=== PATIENT | female | born 1970 | race Hispanic/Latino ===

== ENCOUNTER 2021-02-15 00:17 | Emergency (ER) | payer BC ==
[2021-02-15] MEDS ORDERED: ASPIRIN 325 MG TAB PO ONE (01:18)
--- NOTE | 2021-02-15 01:50 | Emergency Department Report ---
ED Chest Pain HPI - General Chief Complaint: Chest Pain Stated Complaint: CHEST PAIN Time Seen by Provider: 02/15/21 01:46 Source: patient, EMS Mode of arrival: Ambulatory Limitations: No Limitations - History of Present Illness MD Complaint: chest pain -: Sudden (was standing at the computer when the pain started to mid chest. ) Pain Location: substernal Pain Radiation: none Severity: mild, moderate Quality: tightness, aching Consistency: constant Improves With: nothing Worsens With: nothing re: nausea Other Symptoms: cough Treatments Prior to Arrival: aspirin - Related Data Previous Rx's Medication Instructions Recorded Last Taken Type Albuterol Mdi (or & Nicu Only) 2 puff IH QID PRN #1 inhalation 05/06/13 Unknown Rx [ProAir HFA Inhaler] Ibuprofen [Motrin] 800 mg PO TID PRN #25 tablet 05/06/13 Unknown Rx guaiFENesin/CODEINE [Robitussin AC] 5 - 10 ml PO Q6H PRN #100 ml 05/06/13 Unknown Rx Allergies Allergy/AdvReac Type Severity Reaction Status Date / Time No Known Allergies Allergy Verified 05/06/13 02:04 Heart Score - HEART Score History: Slightly suspicious EKG: Normal Age: 45-65 Risk factors: 1-2 risk factors Troponin: < normal limit HEART Score: 2 - EKG Read Time Time EKG Completed: 01:51 EKG Read Time: 01:59 ED Review of Systems ROS: Stated complaint: CHEST PAIN Other details as noted in HPI Comment: All other systems reviewed and negative ED Past Medical Hx - Past Medical History Previous Medical History?: No - Surgical History Additional Surgical History: tonsilectomy, adenoidectomy - Social History Smoking Status: Never Smoker Substance Use Type: None - Medications Home Medications: Home Medications Medication Instructions Recorded Confirmed Last Taken Type Albuterol Mdi (or & Nicu Only) 2 puff IH QID PRN #1 inhalation 05/06/13 Unknown Rx [ProAir HFA Inhaler] Ibuprofen [Motrin] 800 mg PO TID PRN #25 tablet 05/06/13 Unknown Rx guaiFENesin/CODEINE [Robitussin AC] 5 - 10 ml PO Q6H PRN #100 ml 05/06/13 Unknown Rx ED Physical Exam - General Limitations: No Limitations General appearance: alert, in no apparent distress - Head Head exam: Present: atraumatic, normocephalic - Eye Eye exam: Present: normal appearance, PERRL, EOMI Pupils: Present: normal accommodation - ENT ENT exam: Present: normal exam, normal orophraynx, mucous membranes moist, TM's normal bilaterally - Neck Neck exam: Present: normal inspection, full ROM - Respiratory Respiratory exam: Present: normal lung sounds bilaterally. Absent: respiratory distress, wheezes, rales, rhonchi, chest wall tenderness, accessory muscle use - Cardiovascular Cardiovascular Exam: Present: regular rate, normal rhythm. Absent: systolic murmur, diastolic murmur, rubs, gallop - GI/Abdominal GI/Abdominal exam: Present: soft, normal bowel sounds - Extremities Exam Extremities exam: Present: normal inspection - Back Exam Back exam: Present: normal inspection. Absent: CVA tenderness (R), CVA tenderness (L) - Neurological Exam Neurological exam: Present: alert, oriented X3, CN II-XII intact, normal gait - Psychiatric Psychiatric exam: Present: normal affect, normal mood - Skin Skin exam: Present: warm, dry, intact, normal color. Absent: rash ED Course Vital Signs 02/15/21 00:26 Temperature 98 F Pulse Rate 85 Respiratory 18 Rate Blood Pressure 169/98 [Left] O2 Sat by Pulse 98 Oximetry CHIRAG score - Chirag Score Age > 65: (0) No Aspirin use within the Past 7 Days: (0) No 3 or more CAD Risk Factors: (0) No 2 or more Angina events in past 24 hrs: (0) No Known CAD with more than 50% Stenosis: (0) No Elevated Cardiac Markers: (0) No ST Deviation Greater than 0.5mm: (0) No CHIRAG Score: 0 ED Medical Decision Making - Lab Data Result diagrams: 02/15/21 01:31 02/15/21 01:31 - Radiology Data Radiology results: report reviewed [facility] [address] [place] [address] XRay Report Signed Patient: GAURI LEE MR#: [id number] : 1970 Acct:[id number] Age/Sex: 51 / F ADM Date: 02/15/21 Loc: ED Attending Dr: Ordering Physician: ED MD MARINA Date of Service: 02/15/21 Procedure(s): XR chest routine 2V Accession Number(s): [id number] cc: ED DOC, Fluoro Time In Minutes: CHEST 2 VIEWS INDICATION / CLINICAL INFORMATION: Chest Pain. COMPARISON: None available. FINDINGS: SUPPORT DEVICES: None. HEART / MEDIASTINUM: No significant abnormality. LUNGS / PLEURA: No significant pulmonary or pleural abnormality. No pneumotho rax. ADDITIONAL FINDINGS: No significant additional findings. IMPRESSION: 1. No acute findings. Signer Name: Kasi Hopson MD Signed: 02/15/2021 2:16 AM Workstation Name: [id number] Transcribed By: KERON Dictated By: GAIL HOPSON MD Electronically Authenticated By: GAIL HOPSON MD Signed Date/Time: 02/15/21215 DD/ 5 TD/TT: - Medical Decision Making This patient presents with chest pain that is very unlikely angina or acute coronary syndrome. The emergency department evaluation has not identified any cause for suspicion that this chest pain has a cardiac etiology. Based on their history, EKG (which showed no evidence of ischemia or infarction) and imaging, in addition to the patient's physical exam, I see no evidence at this time for a malignant etiology for the patient's chest pain. There is no acute evidence for pulmonary embolus, acute myocardial infarction, pneumothorax, Boerhaeve syndrome, cardiac tamponade, thoracic artery dissection, or any other emergent cardiac, pulmonary or aortic pathology. Given the low pre-test probability for cardiac etiology of chest pain and the absence of any sign of ischemia or infarction, discharge for outpatient follow-up and further evaluation is reasonable. I have explained to the patient that even though a cardiac problem is very unlikely, follow-up and further testing is required to reduce further the already small uncertainty that exists. Other life-threatening diagnoses have been considered. The patient understands the need to return immediately if their symptoms worsen or they develop any new symptoms, and not to engage in any significant exertional activity until follow-up is obtained. Critical care attestation.: If time is entered above; I have spent that time in minutes in the direct care of this critically ill patient, excluding procedure time. ED Disposition Clinical Impression: Chest pain Disposition: HOME / SELF CARE / HOMELESS Is pt being admited?: No Does the pt Need Aspirin: No Condition: Stable Instructions: Nonspecific Chest Pain, Adult, Chest Wall Pain, [id number]
[2021-02-15 02:05] LABS: Basophils % (Auto) 0.4 % (0.0-1.8); Eosinophils # (Auto) 0.3 K/mm3 (0.0-0.4); Eosinophils % (Auto) 5.1 % (0.0-4.3); Hematocrit 42.6 % (30.3-42.9); Hemoglobin 13.9 gm/dl (10.1-14.3); Lymphocytes # (Auto) 1.7 K/mm3 (1.2-5.4); Lymphocytes % (Auto) 25.6 % (13.4-35.0); Mean Corpuscular HGB Conc 33 % (30-34); Mean Corpuscular Volume 90 fl (79-97); Monocytes # (Auto) 0.6 K/mm3 (0.0-0.8); Monocytes % (Auto) 8.6 % (0.0-7.3); Platelet Count 393 K/mm3 (140-440); Red Blood Count 4.75 M/mm3 (3.65-5.03); Red Cell Distribution Width 12.7 % (13.2-15.2)
--- NOTE | 2021-02-15 02:20 | XRay Report ---
CHEST 2 VIEWS INDICATION / CLINICAL INFORMATION: Chest Pain. COMPARISON: None available. FINDINGS: SUPPORT DEVICES: None. HEART / MEDIASTINUM: No significant abnormality. LUNGS / PLEURA: No significant pulmonary or pleural abnormality. No pneumothorax. ADDITIONAL FINDINGS: No significant additional findings. IMPRESSION: 1. No acute findings. Signer Name: Kasi Chin MD Signed: 02/15/2021 2:16 AM Workstation Name: [id number]
[2021-02-15 02:27] LABS: Alanine Aminotransferase 16 units/L (7-56); Albumin 4.5 g/dL (3.9-5); BUN/Creatinine Ratio 18; Blood Urea Nitrogen 14 mg/dL (7-17); Calcium 9.1 mg/dL (8.4-10.2); Hemolysis Index 11
[2021-02-15 07:47] VITALS: BP 160/95
--- NOTE | 2021-02-15 12:23 | Electrocardiograph Report ---
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
== END 2021-02-15 07:53 | disposition home or self-care (01) ==
LOC: ED 00:17
DX: R07.9 Chest pain, unspecified (principal)
CPT/HCPCS: 36415; 71046; 80053; 84484; 85025; 93005; 99284

== ENCOUNTER 2021-02-21 11:09 | Emergency (ER) | payer BC ==
[2021-02-21] MEDS ORDERED: ONDANSETRON 4 MG/2 ML INJ IV ONE ×2 (11:17→16:00)
[2021-02-21] MEDS ORDERED: SODIUM CHLORIDE 0.9% 1000 ML 1,000 ML IV ONE ×2 (11:17→15:15)
[2021-02-21] MEDS ORDERED: MORPHINE 4 MG/1 ML INJ IV ONE (11:17)
--- NOTE | 2021-02-21 11:17 | Emergency Department Report ---
ED Abdominal Pain HPI - General Stated Complaint: ABD PAIN Time Seen by Provider: 02/21/21 11:13 Source: patient Mode of arrival: Ambulatory Limitations: No Limitations - History of Present Illness Initial Comments: Patient is a 51-year-old female presents emergency room complaints of sudden onset of epigastric abdominal pain that began just prior to arrival. She denies ever having this pain in the past. She states that she was able to have a normal bowel movement this morning. She denies any past abdominal surgical history. She denies any fever, vomiting, diarrhea, chest pain, shortness of breath, hematochezia, melena, hematemesis. No past medical history. No aller gies to medications. - Related Data Previous Rx's Medication Instructions Recorded Last Taken Type Albuterol Mdi (or & Nicu Only) 2 puff IH QID PRN #1 inhalation 05/06/13 Unknown Rx [ProAir HFA Inhaler] Ibuprofen [Motrin] 800 mg PO TID PRN #25 tablet 05/06/13 Unknown Rx guaiFENesin/CODEINE [Robitussin AC] 5 - 10 ml PO Q6H PRN #100 ml 05/06/13 Unknown Rx Acetaminophen [Tylenol] 650 mg PO Q8HR PRN #20 capsule 02/21/21 Unknown Rx Ondansetron [Zofran Odt] 4 mg PO Q8HR PRN #8 tab.rapdis 02/21/21 Unknown Rx Allergies Allergy/AdvReac Type Severity Reaction Status Date / Time No Known Allergies Allergy Verified 05/06/13 02:04 ED Review of Systems ROS: Stated complaint: ABD PAIN Other details as noted in HPI Comment: All other systems reviewed and negative ED Past Medical Hx - Surgical History Additional Surgical History: tonsilectomy, adenoidectomy - Social History Smoking Status: Never Smoker Substance Use Type: None - Medications Home Medications: Home Medications Medication Instructions Recorded Confirmed Last Taken Type Albuterol Mdi (or & Nicu Only) 2 puff IH QID PRN #1 inhalation 05/06/13 Unknown Rx [ProAir HFA Inhaler] Ibuprofen [Motrin] 800 mg PO TID PRN #25 tablet 05/06/13 Unknown Rx guaiFENesin/CODEINE [Robitussin AC] 5 - 10 ml PO Q6H PRN #100 ml 05/06/13 Unknown Rx Acetaminophen [Tylenol] 650 mg PO Q8HR PRN #20 capsule 02/21/21 Unknown Rx Ondansetron [Zofran Odt] 4 mg PO Q8HR PRN #8 tab.rapdis 02/21/21 Unknown Rx ED Physical Exam - General Limitations: No Limitations General appearance: alert, other (appears to be in pain ) - Head Head exam: Present: atraumatic, normocephalic - Eye Eye exam: Present: normal appearance - ENT ENT exam: Present: mucous membranes moist - Respiratory Respiratory exam: Present: normal lung sounds bilaterally. Absent: respiratory distress, wheezes, rales, rhonchi, stridor, chest wall tenderness, accessory muscle use, decreased breath sounds, prolonged expiratory - Cardiovascular Cardiovascular Exam: Present: regular rate, normal rhythm, normal heart sounds. Absent: systolic murmur, diastolic murmur, rubs, gallop - GI/Abdominal GI/Abdominal exam: Present: soft, tenderness (epigastric), normal bowel sounds, hernia (ventral just superior to the umbilicus ). Absent: distended, guarding, rebound, rigid - Neurological Exam Neurological exam: Present: alert, oriented X3 - Psychiatric Psychiatric exam: Present: normal affect, normal mood - Skin Skin exam: Present: warm, dry, intact ED Course Vital Signs 02/21/21 02/21/21 15:27 15:45 Temperature 97.8 F Pulse Rate 72 78 Respiratory 18 18 Rate Blood Pressure 164/94 132/81 [Left] O2 Sat by Pulse 96 96 Oximetry ED Medical Decision Making - Lab Data Result diagrams: 02/21/21 11:26 02/21/21 11:26 Lab Results 02/21/21 02/21/21 02/21/21 Range/Units 11:26 11:26 11:26 WBC 9.8 (4.5-11.0) K/mm3 RBC 4.66 (3.65-5.03) M/mm3 Hgb 13.3 (10.1-14.3) gm/dl Hct 40.8 (30.3-42.9) % MCV 88 (79-97) fl MCH 29 (28-32) pg MCHC 33 (30-34) % RDW 12.9 L (13.2-15.2) % Plt Count 354 (140-440) K/mm3 Lymph % (Auto) 18.0 (13.4-35.0) % [place] % (Auto) 7.5 H (0.0-7.3) % Eos % (Auto) 2.0 (0.0-4.3) % Baso % (Auto) 0.4 (0.0-1.8) % Lymph # (Auto) 1.8 (1.2-5.4) K/mm3 [place] # (Auto) 0.7 (0.0-0.8) K/mm3 Eos # (Auto) 0.2 (0.0-0.4) K/mm3 Baso # (Auto) 0.0 (0.0-0.1) K/mm3 Seg Neutrophils % 72.1 H (40.0-70.0) % Seg Neutrophils # 7.1 (1.8-7.7) K/mm3 Sodium 141 (137-145) mmol/L Potassium 3.9 (3.6-5.0) mmol/L Chloride 105.1 (98-107) mmol/L Carbon Dioxide 23 (22-30) mmol/L Anion Gap 17 mmol/L BUN 12 (7-17) mg/dL Creatinine 0.7 (0.6-1.2) mg/dL Estimated GFR > 60 ml/min BUN/Creatinine Ratio 17 % Glucose 122 H (65-100) mg/dL Calcium 8.7 (8.4-10.2) mg/dL Total Bilirubin 0.20 (0.1-1.2) mg/dL AST 15 (5-40) units/L ALT 14 (7-56) units/L Alkaline Phosphatase 90 (35-129) units/L Troponin T < 0.010 (0.00-0.029) ng/mL Total Protein 7.2 (6.3-8.2) g/dL Albumin 4.3 (3.9-5) g/dL Albumin/Globulin Ratio 1.5 % Lipase 32 (13-60) units/L HCG, Qual Negative (Negative) Urine Color (Yellow) Urine Turbidity (Clear) Urine pH (5.0-7.0) Ur Specific [place] (1.003-1.030) Urine Protein (Negative) mg/dL Urine Glucose (UA) (Negative) mg/dL Urine Ketones (Negative) mg/dL Urine Blood (Negative) Urine Nitrite (Negative) Urine Bilirubin (Negative) Urine Urobilinogen (<2.0) mg/dL Ur Leukocyte Esterase (Negative) Urine WBC (Auto) (0.0-6.0) /HPF Urine RBC (Auto) (0.0-6.0) /HPF U Epithel Cells (Auto) (0-13.0) /HPF 02/21/21 Range/Units Unknown WBC (4.5-11.0) K/mm3 RBC (3.65-5.03) M/mm3 Hgb (10.1-14.3) gm/dl Hct (30.3-42.9) % MCV (79-97) fl MCH (28-32) pg MCHC (30-34) % RDW (13.2-15.2) % Plt Count (140-440) K/mm3 Lymph % (Auto) (13.4-35.0) % [place] % (Auto) (0.0-7.3) % Eos % (Auto) (0.0-4.3) % Baso % (Auto) (0.0-1.8) % Lymph # (Auto) (1.2-5.4) K/mm3 [place] # (Auto) (0.0-0.8) K/mm3 Eos # (Auto) (0.0-0.4) K/mm3 Baso # (Auto) (0.0-0.1) K/mm3 Seg Neutrophils % (40.0-70.0) % Seg Neutrophils # (1.8-7.7) K/mm3 Sodium (137-145) mmol/L Potassium (3.6-5.0) mmol/L Chloride (98-107) mmol/L Carbon Dioxide (22-30) mmol/L Anion Gap mmol/L BUN (7-17) mg/dL Creatinine (0.6-1.2) mg/dL Estimated GFR ml/min BUN/Creatinine Ratio % Glucose (65-100) mg/dL Calcium (8.4-10.2) mg/dL Total Bilirubin (0.1-1.2) mg/dL AST (5-40) units/L ALT (7-56) units/L Alkaline Phosphatase (35-129) units/L Troponin T (0.00-0.029) ng/mL Total Protein (6.3-8.2) g/dL Albumin (3.9-5) g/dL Albumin/Globulin Ratio % Lipase (13-60) units/L HCG, Qual (Negative) Urine Color Yellow (Yellow) Urine Turbidity Slightly-cloudy (Clear) Urine pH 7.0 (5.0-7.0) Ur Specific [place] 1.008 (1.003-1.030) Urine Protein <15 mg/dl (Negative) mg/dL Urine Glucose (UA) Neg (Negative) mg/dL Urine Ketones Neg (Negative) mg/dL Urine Blood Mod (Negative) Urine Nitrite Neg (Negative) Urine Bilirubin Neg (Negative) Urine Urobilinogen < 2.0 (<2.0) mg/dL Ur Leukocyte Esterase Neg (Negative) Urine WBC (Auto) < 1.0 (0.0-6.0) /HPF Urine RBC (Auto) 1.0 (0.0-6.0) /HPF U Epithel Cells (Auto) 12.0 (0-13.0) /HPF Vital Signs 02/21/21 02/21/21 15:27 15:45 Temperature 97.8 F Pulse Rate 72 78 Respiratory 18 18 Rate Blood Pressure 164/94 132/81 [Left] O2 Sat by Pulse 96 96 Oximetry - Radiology Data Radiology results: report reviewed Ordering Physician: CITLALY FARRIS Date of Service: 02/21/21 Procedure(s): CT abdomen pelvis w con Accession Number(s): [id number] cc: CITLALY FARRIS CT OF THE ABDOMEN AND PELVIS WITH INTRAVENOUS CONTRAST INDICATION / CLINICAL INFORMATION: Epigastric abdominal pain. TECHNIQUE: The patient received 100 cc Omnipaque [address] scans at this location are performed using CT dose reduction for ALARA by means of automated exposure control. COMPARISON: None available. FINDINGS: ABDOMEN: The liver, spleen, gallbladder, bile ducts, pancreas, adrenal glands and kidneys demonstrate no significant abnormality. No adenopathy is seen. The lung bases are clear. There is a small fat-containing midline epigastric ventral hernia with mild increased density in the hernia sac fat. There is also mild patchy increased density in the omenta l/peritoneal fat along the inferior margin of the mid transverse colon slightly to the left of midline. This does not appear to be related to the hernia, although the hernia is nearby. There is no e vidence of bowel obstruction, wall thickening or free air. PELVIS: The distal ureters and urinary bladder are normal. A 2 cm left ovarian cyst is probably physiologic. No free fluid is seen. A normal appendix is present. There are scattered left colonic diverticula without acute inflammation. I do not identify a hernia. There is advanced degenerative disc disease at L4-5. No acute osseous abnormality is seen. IMPRESSION: 1. Small fat-containing midline epigastric ventral hernia. Mild increased density in the hernia sac fat may be related to acute or chronic inflammation. 2. Mild patchy increased density in the omental/peritoneal fat along the inferior margin of the transverse colon. A small omental infarction should be considered. Signer Name: Ad Corley MD Signed: 02/21/2021 2:20 PM Workstation Name: [id number] Transcribed By: RT Dictated By: Ad Corley MD Electronically Authenticated By: Ad Corley MD Signed Date/Time: 02/21/211419 DD/ 12 TD/TT: - Medical Decision Making Patient is a 51-year-old female presents emergency room complaints of sudden onset of epigastric abdominal pain that began just prior to arrival. She denies ever having this pain in the past. She states that she was able to have a normal bowel movement this morning. She denies any past abdominal surgical history. She denies any fever, vomiting, diarrhea, chest pain, shortness of breath, hematochezia, melena, hematemesis. No past medical history. No allergies to medications. Vitals are stable. On exam: Epigastric tenderness outpatient, there is a palpable ventral hernia just superior to the umbilicus, normal bowel sounds, no peritoneal signs. Able to manually reduce patient's hernia with improvement of her pain and she states now she is pain-free. Labs are stable. UA is within normal limits. CT abdomen pelvis 1. Small fat- containing midline epigastric ventral hernia. Mild increased density in the hernia sac fat may be related to acute or chronic inflammation. 2. Mild patchy increased density in the omental/peritoneal fat along the inferior margin of the transverse colon. A small omental infarction should be considered. Discussed all results with patient and answer questions. Patient will be referred to outpatient general surgery. Discussed return precautions with patient. Dr. Coley, ER attending evaluated patient at bedside and is agreeable with plan. advised pt Please take medication as prescribed as needed. Increase your fluid intake. Follow-up with a general surgeon. Return to emergency room immediately for any new or worsening symptoms including but not limited to if the hernia bulges and is unable to be placed back, vomiting, unable to have a bowel movement or pass gas, etc. Critical care attestation.: If time is entered above; I have spent that time in minutes in the direct care of this critically ill patient, excluding procedure time. ED Disposition Clinical Impression: Abdominal pain Qualifiers: Abdominal location: epigastric Qualified Code(s): R10.13 - Epigastric pain Ventral hernia Qualifiers: Obstruction and gangrene presence: without obstruction or gangrene Qualified Code(s): K43.9 - Ventral hernia without obstruction or gangrene Disposition: 01 HOME / SELF CARE / HOMELESS Is pt being admited?: No Does the pt Need Aspirin: No Condition: Stable Instructions: Hernia, Adult, [id number] Additional Instructions: Please take medication as prescribed as needed. Increase your fluid intake. Follow-up with a general surgeon. Return to emergency room immediately for any new or worsening symptoms including but not limited to if the hernia bulges and is unable to be placed back, vomiting, unable to have a bowel movement or pass gas, etc. Prescriptions: Acetaminophen [Tylenol] 650 mg PO Q8HR PRN #20 capsule PRN Reason: pain Ondansetron [Zofran Odt] 4 mg PO Q8HR PRN #8 tab.rapdis PRN Reason: nausea/vomiting Referrals: ALIX LOPEZ MD [Staff Physician] - 3-5 Days LAWRENCE ROPER DO [Staff Physician] - 3-5 Days Forms: Work/School Release Form(ED) Time of Disposition: 15:19 Print Language: ESTONIAN
[2021-02-21 12:07] LABS: Alanine Aminotransferase 14 units/L (7-56); Albumin 4.3 g/dL (3.9-5); Blood Urea Nitrogen 12 mg/dL (7-17); Calcium 8.7 mg/dL (8.4-10.2); Hemolysis Index 11
[2021-02-21 12:28] LABS: BUN/Creatinine Ratio 17
[2021-02-21 12:32] LABS: Basophils % (Auto) 0.4 % (0.0-1.8); Eosinophils # (Auto) 0.2 K/mm3 (0.0-0.4); Hematocrit 40.8 % (30.3-42.9); Hemoglobin 13.3 gm/dl (10.1-14.3); Lymphocytes # (Auto) 1.8 K/mm3 (1.2-5.4); Mean Corpuscular HGB Conc 33 % (30-34); Mean Corpuscular Volume 88 fl (79-97); Monocytes # (Auto) 0.7 K/mm3 (0.0-0.8); Monocytes % (Auto) 7.5 % (0.0-7.3); Platelet Count 354 K/mm3 (140-440); Red Blood Count 4.66 M/mm3 (3.65-5.03); Red Cell Distribution Width 12.9 % (13.2-15.2)
[2021-02-21 12:36] LABS: Bilirubin,Urine NEG (Negative); Blood,Urine MOD (Negative); Color,Urine Yellow (Yellow); Protein,Urine <15 mg/dL mg/dL (Negative); Urobilinogen,Urine < 2.0 mg/dL (<2.0); WBC,Urine < 1.0 /HPF (0.0-6.0)
--- NOTE | 2021-02-21 14:24 | Cat Scan Report ---
CT OF THE ABDOMEN AND PELVIS WITH INTRAVENOUS CONTRAST INDICATION / CLINICAL INFORMATION: Epigastric abdominal pain. TECHNIQUE: The patient received 100 cc Omnipaque [address] scans at this location are performed using CT dose reduction for ALARA by means of automated exposure control. COMPARISON: None available. FINDINGS: ABDOMEN: The liver, spleen, gallbladder, bile ducts, pancreas, adrenal glands and kidneys demonstrate no significant abnormality. No adenopathy is seen. The lung bases are clear. There is a small fat-containing midline epigastric ventral hernia with mild increased density in the hernia sac fat. There is also mild patchy increased density in the omental/peritoneal fat along the i nferior margin of the mid transverse colon slightly to the left of midline. This does not appear to b e related to the hernia, although the hernia is nearby. There is no evidence of bowel obstruction, wa ll thickening or free air. PELVIS: The distal ureters and urinary bladder are normal. A 2 cm left ovarian cyst is probably physi ologic. No free fluid is seen. A normal appendix is present. There are scattered left colonic diverti cula without acute inflammation. I do not identify a hernia. There is advanced degenerative disc dise ase at L4-5. No acute osseous abnormality is seen. IMPRESSION: 1. Small fat-containing midline epigastric ventral hernia. Mild increased density in the hernia sac f at may be related to acute or chronic inflammation. 2. Mild patchy increased density in the omental/peritoneal fat along the inferior margin of the trans verse colon. A small omental infarction should be considered. Signer Name: Ad Corley MD Signed: 02/21/2021 2:20 PM Workstation Name: [id number]
[2021-02-21] MEDS ORDERED: KETOROLAC 30 MG/1 ML INJ IV ONE (14:59)
--- NOTE | 2021-02-21 14:59 | Event Note ---
Date: 02/21/21 Wbuq-th-[id number] evaluation performed. 51-year-old female presenting with epigastric abdominal pain, and reducible supraumbilical hernia. On my exam ination, she has reassuring vital signs, and no abdominal tenderness, rebound, guarding or peritoneal signs. The physician logistics assistant has graciously been able to reduce the patient's umbilical hernia. The patient does not want narcotic prescriptions. Patient may follow-up with an outpatient general surgeon for elective repair, we also discussed supportive undergarments. Return precautions are reviewed. Patient articulated understanding. Prior to discharge, will vital signs, and EKG, as initial EKG was markedly limited by motion artifact. Discussed with physician logistics assistant. All questions answered. Patient has endorsed understanding. Discharge diagnosis: Ventral hernia, reducible. Do not suspect gut at this time. Lab Results 02/21/21 02/21/21 02/21/21 Range/Units 11:26 11:26 11:26 WBC 9.8 (4.5-11.0) K/mm3 RBC 4.66 (3.65-5.03) M/mm3 Hgb 13.3 (10.1-14.3) gm/dl Hct 40.8 (30.3-42.9) % MCV 88 (79-97) fl MCH 29 (28-32) pg MCHC 33 (30-34) % RDW 12.9 L (13.2-15.2) % Plt Count 354 (140-440) K/mm3 Lymph % (Auto) 18.0 (13.4-35.0) % [place] % (Auto) 7.5 H (0.0-7.3) % Eos % (Auto) 2.0 (0.0-4.3) % Baso % (Auto) 0.4 (0.0-1.8) % Lymph # (Auto) 1.8 (1.2-5.4) K/mm3 [place] # (Auto) 0.7 (0.0-0.8) K/mm3 Eos # (Auto) 0.2 (0.0-0.4) K/mm3 Baso # (Auto) 0.0 (0.0-0.1) K/mm3 Seg Neutrophils % 72.1 H (40.0-70.0) % Seg Neutrophils # 7.1 (1.8-7.7) K/mm3 Sodium 141 (137-145) mmol/L Potassium 3.9 (3.6-5.0) mmol/L Chloride 105.1 (98-107) mmol/L Carbon Dioxide 23 (22-30) mmol/L Anion Gap 17 mmol/L BUN 12 (7-17) mg/dL Creatinine 0.7 (0.6-1.2) mg/dL Estimated GFR > 60 ml/min BUN/Creatinine Ratio 17 % Glucose 122 H (65-100) mg/dL Calcium 8.7 (8.4-10.2) mg/dL Total Bilirubin 0.20 (0.1-1.2) mg/dL AST 15 (5-40) units/L ALT 14 (7-56) units/L Alkaline Phosphatase 90 (35-129) units/L Troponin T < 0.010 (0.00-0.029) ng/mL Total Protein 7.2 (6.3-8.2) g/dL Albumin 4.3 (3.9-5) g/dL Albumin/Globulin Ratio 1.5 % Lipase 32 (13-60) units/L HCG, Qual Negative (Negative) Urine Color (Yellow) Urine Turbidity (Clear) Urine pH (5.0-7.0) Ur Specific [place] (1.003-1.030) Urine Protein (Negative) mg/dL Urine Glucose (UA) (Negative) mg/dL Urine Ketones (Negative) mg/dL Urine Blood (Negative) Urine Nitrite (Negative) Urine Bilirubin (Negative) Urine Urobilinogen (<2.0) mg/dL Ur Leukocyte Esterase (Negative) Urine WBC (Auto) (0.0-6.0) /HPF Urine RBC (Auto) (0.0-6.0) /HPF U Epithel Cells (Auto) (0-13.0) /HPF 02/21/21 Range/Units Unknown WBC (4.5-11.0) K/mm3 RBC (3.65-5.03) M/mm3 Hgb (10.1-14.3) gm/dl Hct (30.3-42.9) % MCV (79-97) fl MCH (28-32) pg MCHC (30-34) % RDW (13.2-15.2) % Plt Count (140-440) K/mm3 Lymph % (Auto) (13.4-35.0) % [place] % (Auto) (0.0-7.3) % Eos % (Auto) (0.0-4.3) % Baso % (Auto) (0.0-1.8) % Lymph # (Auto) (1.2-5.4) K/mm3 [place] # (Auto) (0.0-0.8) K/mm3 Eos # (Auto) (0.0-0.4) K/mm3 Baso # (Auto) (0.0-0.1) K/mm3 Seg Neutrophils % (40.0-70.0) % Seg Neutrophils # (1.8-7.7) K/mm3 Sodium (137-145) mmol/L Potassium (3.6-5.0) mmol/L Chloride (98-107) mmol/L Carbon Dioxide (22-30) mmol/L Anion Gap mmol/L BUN (7-17) mg/dL Creatinine (0.6-1.2) mg/dL Estimated GFR ml/min BUN/Creatinine Ratio % Glucose (65-100) mg/dL Calcium (8.4-10.2) mg/dL Total Bilirubin (0.1-1.2) mg/dL AST (5-40) units/L ALT (7-56) units/L Alkaline Phosphatase (35-129) units/L Troponin T (0.00-0.029) ng/mL Total Protein (6.3-8.2) g/dL Albumin (3.9-5) g/dL Albumin/Globulin Ratio % Lipase (13-60) units/L HCG, Qual (Negative) Urine Color Yellow (Yellow) Urine Turbidity Slightly-cloudy (Clear) Urine pH 7.0 (5.0-7.0) Ur Specific [place] 1.008 (1.003-1.030) Urine Protein <15 mg/dl (Negative) mg/dL Urine Glucose (UA) Neg (Negative) mg/dL Urine Ketones Neg (Negative) mg/dL Urine Blood Mod (Negative) Urine Nitrite Neg (Negative) Urine Bilirubin Neg (Negative) Urine Urobilinogen < 2.0 (<2.0) mg/dL Ur Leukocyte Esterase Neg (Negative) Urine WBC (Auto) < 1.0 (0.0-6.0) /HPF Urine RBC (Auto) 1.0 (0.0-6.0) /HPF U Epithel Cells (Auto) 12.0 (0-13.0) /HPF CT OF THE ABDOMEN AND PELVIS WITH INTRAVENOUS CONTRAST INDICATION / CLINICAL INFORMATION: Epigastric abdominal pain. TECHNIQUE: The patient received 100 cc Omnipaque [address] scans at this location are performed using CT dose reduction for ALARA by means of automated exposure control. COMPARISON: None available. FINDINGS: ABDOMEN: The liver, spleen, gallbladder, bile ducts, pancreas, adrenal glands and kidneys demonstrate no significant abnormality. No adenopathy is seen. The lung bases are clear. There is a small fat-containing midline epigastric ventral hernia with mild increased density in the hernia sac fat. There is also mild patchy increased density in the omental/peritoneal fat along the inferior margin of the mid transverse colon slightly to the left of midline. This does not appear to be related to the hernia, although the hernia is nearby. There is no evidence of bowel obstruction, wall thickening or free air. PELVIS: The distal ureters and urinary bladder are normal. A 2 cm left ovarian cyst is probably physiologic. No free fluid is seen. A normal appendix is present. There are scattered left colonic diverticula without acute inflammation. I do not identify a hernia. There is advanced degenerative disc disease at L4-5. No acute osseous abnormality is seen. IMPRESSION: 1. Small fat-containing midline epigastric ventral hernia. Mild increased density in the hernia sac fat may be related to acute or chronic inflammation. 2. Mild patchy increased density in the omental/peritoneal fat along the inferior margin of the transverse colon. A small omental infarction should be considered. Signer Name: Ad Corley MD Signed: 02/21/2021 1:20 PM Workstation Name: [id number]
[2021-02-21 16:10] VITALS: BP 132/81
--- NOTE | 2021-02-25 18:37 | Electrocardiograph Report ---
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
--- NOTE | 2021-02-25 18:39 | Electrocardiograph Report ---
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
== END 2021-02-21 16:12 | disposition home or self-care (01) ==
LOC: ED 11:09
DX: R10.13 Epigastric pain (principal); K43.9 Ventral hernia without obstruction or gangrene
CPT/HCPCS: 36415; 74177; 80053; 81001; 83690; 84484; 84703; 85025; 93005; 96374; 96375; 99284; J1885; J2405; Q9967

== ENCOUNTER 2021-04-07 10:56 | Day surgery (SDC) | payer BC ==
[2021-04-07] MEDS ORDERED: LACTATED RINGERS 1,000 ML IV SCH (11:00)
[2021-04-07] MEDS ORDERED: HEPARIN 5,000 UNIT/1 ML VIAL SUB-Q NR (11:15)
[2021-04-07] MEDS ORDERED: ceFAZolin/STERILE WATER 2 GM/20 ML SYRINGE IV NR (12:00)
--- NOTE | 2021-04-07 12:40 | Anesthesia Consultation ---
Anesthesia Consult and Med Hx Date of service: 04/07/21 - Airway Anesthetic Teeth Evaluation: Good ROM Head & Neck: Adequate Mental/Hyoid Distance: Adequate Mallampati Class: Class II Intubation Access Assessment: Probably Good - Pre-Operative Health Status ASA Pre-Surgery Classification: ASA1 Proposed Anesthetic Plan: General - Central Nervous System Hx Psychiatric Problems: No - Other Systems Hx Alcohol Use: No Hx Substance Use: No Hx Cancer: No - Additional Comments Anesthesia Medical History Comments: ventral hernia
--- NOTE | 2021-04-07 12:41 | Anesthesia Day of Surgery ---
Anesthesia Day of Surgery - Day of Surgery Patient Examined: Yes Patient H&P Reviewed: Yes Patient is NPO: Yes
[2021-04-07] MEDS ORDERED: propofoL 200 MG/20 ML VIAL IV ONE (12:43)
[2021-04-07] MEDS ORDERED: HYDROmorphone 1 MG/1 ML INJ ONE (12:43)
[2021-04-07] MEDS ORDERED: LIDOCAINE MPF (2%) 20 MG/1 ML VIAL 5 ML ONE (12:44)
[2021-04-07] MEDS ORDERED: ROCURONIUM 50 MG/5 ML INJ IV ONE (12:44)
[2021-04-07] MEDS ORDERED: BUPIVACAINE/PF (0.5%) 5 MG/1 ML 30 ML VIAL INFILTRATI ONE ×2 (12:48→13:21)
[2021-04-07] MEDS ORDERED: LIDOCAINE 1%/EPINEPHRINE 1:100,000 VIAL (20 ML) INFILTRATI ONE (12:48)
[2021-04-07] MEDS ORDERED: SCOPOLAMINE TRANSDERMAL PATCH 72 HR TD ONE (13:00)
[2021-04-07] MEDS ORDERED: GABAPENTIN 300 MG CAP PO ONE (13:00)
[2021-04-07] MEDS ORDERED: CELECOXIB 200 MG CAP PO NR (13:00)
[2021-04-07] MEDS ORDERED: MIDAZOLAM 2 MG/2 ML INJ IV ONE (13:00)
[2021-04-07] MEDS ORDERED: FAMOTIDINE 20 MG/2 ML INJ IV ONE (13:00)
[2021-04-07] MEDS ORDERED: dexAMETHasone 20 MG/5 ML VIAL ONE (13:19)
[2021-04-07] MEDS ORDERED: ONDANSETRON 4 MG/2 ML INJ ONE (13:20)
[2021-04-07] MEDS ORDERED: SODIUM CHLORIDE 0.9% IRR 1,500 ML BOTTLE IR ONE (13:21)
[2021-04-07] MEDS ORDERED: GLYCOPYRROLATE 0.4 MG/2 ML INJ ONE (14:06)
[2021-04-07] MEDS ORDERED: NEOSTIGMINE 10MG/10 ML INJ MDV ONE (14:06)
[2021-04-07] MEDS ORDERED: KETOROLAC 30 MG/1 ML INJ ONE (14:08)
--- NOTE | 2021-04-07 14:17 | Procedure Note ---
Date of procedure: 04/07/21 Pre-op diagnosis: Incarcerated ventral hernia Post-op diagnosis: same Procedure: Open repair of incarcerated ventral hernia with mesh Description of procedure: Pt was placed supine on the OR table. General anesthesia was administered. Abdomen was prepped and draped. Skin and SQ tissue over the hernia were infiltrated with 5 ml of 0.5% Marcaine. Skin was incised. Hemostasis was obtained with the Bovie. The hernia sac was immediately identified. The sac was dissected off of the SQ tissue down to it's fascial base. Sac was incised and contained incarcerated omentum. The omentum was freed from the sac and was reduced back into the peritoneal cavity. Hernia sac was excised at the level of the fascia and the sac passed off the table as specimen. A medium piece of Ventralex ST mesh was placed through the fascial defect into the peritoneal cavity. The mesh was appropriately positioned. The mesh was secured to the fascia and the fascia simultaneously closed with several interrupted sutures of 0-Ethibond. SQ tissue was irrigated with warm saline. SQ tissue was approximated with a running suture of 3-0 Vicryl. Skin was closed with a running subcuticular suture of 4-0 Monocryl. Skin glue was applied. Pt tolerated the procedure well and was taken to PACU in stable condition. Anesthesia: GETA Surgeon: ALIX LOPEZ Estimated blood loss: minimal Pathology: list (Hernia sac) Specimen disposition: to lab Condition: stable Disposition: PACU
[2021-04-07] MEDS: HYDROmorphone 1 MG/1 ML INJ ONE ×2 (14:35→14:45)
[2021-04-07] MEDS ORDERED: oxyCODONE /ACETAMINOPHEN 5-325MG TAB ONE (14:38)
--- NOTE | 2021-04-07 16:43 | Post Anesthesia Evaluation ---
- Post Anesthesia Evaluation Patient Participated: Yes Airway Patent: Yes Stable Respiratory Function: Yes Nausea/Vomiting: No Temp > 96.8F: Yes Pain Manageable: Yes Adequeate Hydration: Yes Anesthesia Complications: No Block Receding Appropriately: Not Applicable Patient on Ventilator: No
[2021-04-07 18:46] VITALS: BP 108/64
== END 2021-04-07 10:57 | disposition home or self-care (01) ==
LOC: OR 10:56
PROVIDERS: ATTEND Surgery
DX: K43.6 Other and unspecified ventral hernia with obstruction, without gangrene (principal); Z79.899 Other long term (current) drug therapy; Z98.890 Other specified postprocedural states
CPT/HCPCS: 49561; 49568; 81025; 88302; C1781; J0690; J1100; J1170; J1644; J1815; J1885; J2250; J2405; J2704; J2710; J3490; J7120

== ENCOUNTER 2021-05-27 19:42 | Emergency (ER) | payer BC ==
[2021-05-27 21:12] VITALS: BP 162/102
[2021-05-27] MEDS ORDERED: ASPIRIN 325 MG TAB PO ONE (23:02)
[2021-05-28 00:10] LABS: Bilirubin,Urine NEG (Negative); Blood,Urine LG (Negative); Color,Urine Yellow (Yellow); Urobilinogen,Urine < 2.0 mg/dL (<2.0)
[2021-05-28] MEDS ORDERED: ASPIRIN 325 MG TAB ONE (01:07)
[2021-05-28] MEDS ORDERED: LIDOCAINE-MPF (1%) 10 MG/1 ML VIAL 5 ML INFILTRATI ONE (02:02)
--- NOTE | 2021-05-28 05:36 | Emergency Department Report ---
ED Female HPI - General Chief complaint: Urogenital-Female Stated complaint: VAGINAL PAIN Source: patient Mode of arrival: Ambulatory Limitations: No Limitations - History of Present Illness Initial comments: Patient is a 51-year-old female with no past medical history presented to the ED with complaint of acute onset persistent vaginal irritation, vaginal discharge, vaginal itching and burning sensation with dysuria, urinary frequency and urgency for the last 1 week after having unprotected sexual intercourse. Patient states that she has been using pqmy-zlb-jrqdged topical antifungal creams with no relief. Patient also states that she got a prescription for Diflucan from a virtual visit with another online physician and took the medications with no relief. Patient denies dizziness, vaginal bleeding, abdominal pain, nausea and vomiting, diarrhea, dyspareunia, low back pain, fever and chills. MD Complaint: vaginal discharge, dysuria, possible STD, other (Vaginal irritation with discharge) -: Sudden, week(s) (1) Location: suprapubic, other (Vaginal) Radiation: non-radiating Severity: severe Severity scale (0 -10): 7 Quality: sharp, burning Consistency: constant Improves with: none Worsens with: urination, intercourse Are you Now?: No Associated Symptoms: denies other symptoms, vaginal discharge, dysuria, hematuria. denies: vaginal bleeding, abdominal pain, nausea/vomiting, fever/chills, headaches, loss of appetite, rash, seizure, shortness of breath, syncope, weakness - Related Data Sexually active: Yes Previous Rx's Medication Instructions Recorded Last Taken Type cephALEXin [Keflex] 500 mg PO Q8HR 1 Days #3 cap 04/07/21 Unknown Rx oxyCODONE /ACETAMINOPHEN [Percocet 1 tab PO Q4HR PRN #40 tab 04/07/21 Unknown Rx 5/325] Dibucaine 1% [Nupercainal] 1 applicatio VT TID PRN #1 tube 05/28/21 Unknown Rx Doxycycline Hyclate 100 mg PO Q12H #28 cap 05/28/21 Unknown Rx Fluconazole [Diflucan TAB] 200 mg PO QDAY #3 tablet 05/28/21 Unknown Rx Ibuprofen [Motrin] 600 mg PO Q8H PRN #30 tablet 05/28/21 Unknown Rx Allergies Allergy/AdvReac Type Severity Reaction Status Date / Time No Known Allergies Allergy Verified 04/02/21 12:38 ED Review of Systems ROS: Stated complaint: VAGINAL PAIN Other details as noted in HPI Constitutional: denies: chills, fever Eyes: denies: eye pain, eye discharge, vision change ENT: denies: ear pain, throat pain Respiratory: denies: cough, shortness of breath, wheezing Cardiovascular: denies: chest pain, palpitations Endocrine: no symptoms reported Gastrointestinal: denies: abdominal pain, nausea, diarrhea Genitourinary: urgency, dysuria, frequency, hematuria, discharge, other (Vaginal irritation) Musculoskeletal: denies: back pain, joint swelling, arthralgia Skin: denies: rash, lesions Neurological: denies: headache, weakness, paresthesias Psychiatric: denies: anxiety, depression Hematological/Lymphatic: denies: easy bleeding, easy bruising ED Past Medical Hx - Past Medical History Previous Medical History?: No Hx HIV: No - Surgical History Past Surgical History?: Yes Additional Surgical History: tonsilectomy, adenoidectomy, Hernia - Social History Smoking Status: Never Smoker - Medications Home Medications: Home Medications Medication Instructions Recorded Confirmed Last Taken Type cephALEXin [Keflex] 500 mg PO Q8HR 1 Days #3 cap 04/07/21 Unknown Rx oxyCODONE /ACETAMINOPHEN [Percocet 1 tab PO Q4HR PRN #40 tab 04/07/21 Unknown Rx 5/325] Dibucaine 1% [Nupercainal] 1 applicatio VT TID PRN #1 tube 05/28/21 Unknown Rx Doxycycline Hyclate 100 mg PO Q12H #28 cap 05/28/21 Unknown Rx Fluconazole [Diflucan TAB] 200 mg PO QDAY #3 tablet 05/28/21 Unknown Rx Ibuprofen [Motrin] 600 mg PO Q8H PRN #30 tablet 05/28/21 Unknown Rx ED Physical Exam - General Limitations: No Limitations General appearance: alert, in no apparent distress - Head Head exam: Present: atraumatic, normocephalic, normal inspection - Eye Eye exam: Present: normal appearance, PERRL, EOMI Pupils: Present: normal accommodation - ENT ENT exam: Present: normal exam, normal orophraynx, mucous membranes moist, TM's normal bilaterally, normal external ear exam - Neck Neck exam: Present: normal inspection, full ROM - Respiratory Respiratory exam: Present: normal lung sounds bilaterally. Absent: respiratory distress, wheezes, rales, rhonchi, chest wall tenderness, accessory muscle use, prolonged expiratory - Cardiovascular Cardiovascular Exam: Present: regular rate, normal rhythm, normal heart sounds. Absent: systolic murmur, diastolic murmur, rubs, gallop - GI/Abdominal GI/Abdominal exam: Present: soft, normal bowel sounds. Absent: tenderness, guarding, rebound, hyperactive bowel sounds, hypoactive bowel sounds, organomegaly, mass - External exam: Present: erythema Speculum exam: Present: erythema, vaginal discharge, cervical discharge Bi-manual exam: Present: other (ED female integrated marketing specialist present Ms. Rose) - Extremities Exam Extremities exam: Present: normal inspection, full ROM, normal capillary refill - Back Exam Back exam: Present: normal inspection, full ROM. Absent: tenderness, CVA tenderness (R), CVA tenderness (L), muscle spasm, paraspinal tenderness - Neurological Exam Neurological exam: Present: alert, oriented X3, CN II-XII intact, normal gait, reflexes normal - Psychiatric Psychiatric exam: Present: normal affect, normal mood - Skin Skin exam: Present: warm, dry, intact, normal color. Absent: rash ED Course Vital Signs 05/27/21 21:06 Temperature 98.0 F Pulse Rate 85 Respiratory 17 Rate Blood Pressure 162/102 [Right] O2 Sat by Pulse 100 Oximetry ED Medical Decision Making - Medical Decision Making This is a 51-year-old female with no past medical history presented to the ED with complaint of acute onset persistent vaginal irritation, vaginal discharge, vaginal itching and burning sensation with dysuria, urinary frequency and urgency for the last 1 week after having unprotected sexual intercourse. Patient states that she has been using dlqy-vnb-bnbunfi topical antifungal creams with no relief. Patient also states that she got a prescription for Diflucan from a virtual visit with another online physician and took the medications with no relief. In the ED, patient is alert and oriented x3 and is not in any distress. Wet prep test results showed significant yeast in the wet mount specimen. Urinalysis showed urinary tract infection. Based on patient's risk factors, patient was empirically treated in the ED with Rocephin 1 g intramuscular injection. Patient was discharged home on empirical doxycycline 100 mg every 12 hours for 2 weeks and also given Diflucan prescription. Patient was advised to follow-up with the [place] [facility] for further STD testing including HIV and syphilis. Patient was advised return to the ED immediately if symptoms get worse. - Differential Diagnosis UTI; Jonna vaginitis; Trichomonas; STD exposure Critical care attestation.: If time is entered above; I have spent that time in minutes in the direct care of this critically ill patient, excluding procedure time. ED Disposition Clinical Impression: Acute urinary tract infection, Vaginitis due to Jonna, Possible exposure to STD, Urethritis, nonspecific Disposition: 01 HOME / SELF CARE / HOMELESS Is pt being admited?: No Does the pt Need Aspirin: No Condition: Stable Instructions: Urinary Tract Infection, Adult, Ixpv-fw-Xpmc, Vaginitis, [id number], Safe Sex Additional Instructions: Take medication with food, drink plenty of fluids and follow-up with the [facility] for further STD testing including HIV and syphilis. Observe safe sexual practices. Follow-up with your primary care physician in 7 to 10 days for reevaluation. Return to the ED immediately if symptoms get worse. Prescriptions: Fluconazole [Diflucan TAB] 200 mg PO QDAY #3 tablet Doxycycline Hyclate 100 mg PO Q12H #28 cap Ibuprofen [Motrin] 600 mg PO Q8H PRN #30 tablet PRN Reason: Pain Dibucaine 1% [Nupercainal] 1 applicatio VT TID PRN #1 tube PRN Reason: Pain , Severe (7-10) Referrals: [facility] [Outside] - 7-10 days Forms: STI Treatment and Prevention Time of Disposition: 05:41 Print Language: TAJIK
== END 2021-05-28 06:01 | disposition home or self-care (01) ==
LOC: ED 19:42
DX: N39.0 Urinary tract infection, site not specified (principal); B37.3 Candidiasis of vulva and vagina; Z20.2 Contact with and (suspected) exposure to infections with a predominantly sexual mode of transmission
CPT/HCPCS: 81001; 87076; 87086; 87210; 96372; 99284; J0696; J3490